=== PATIENT | female | born 1975 | race Caucasian/White ===

== ENCOUNTER 2017-07-27 22:16 | Emergency (ER) | payer OTHER ==
[~2017-07-27] VITALS: Ht 165.1 cm; Wt 126.5 kg
[2017-07-27 22:21] VITALS: Ht 165.1 cm; Wt 126.5 kg
[2017-07-28 00:22] LABS: BILIRUBIN DIRECT 0.1 mg/dL (0.0-0.2); BILIRUBIN TOTAL 0.3 mg/dL (0.20-1.00); TOTAL PROTEIN, SERUM 6.4 g/dL (6.4-8.2)
[2017-07-28 00:26] LABS: ALBUMIN 2.8 g/dL (3.4-5.0)
[2017-07-28 01:29] VITALS: BP 155/97
== END 2017-07-28 01:29 | disposition home or self-care (01) ==
LOC: ED 22:16
PROVIDERS: Emergency Medicine
DX: K21.9 Gastro-esophageal reflux disease without esophagitis (principal); I10 Essential (primary) hypertension